=== PATIENT | female | born 1960 | race Caucasian/White ===

== ENCOUNTER 2020-02-21 12:43 | Emergency (ER) | payer BC ==
[~2020-02-21] VITALS: Ht 165.1 cm; Wt 55.5 kg
[2020-02-21 12:48] VITALS: Ht 165.1 cm; Wt 55.5 kg
[2020-02-21 13:28] LABS: BASOPHILS 0.8 % (0-2); HEMOGLOBIN 10.6 g/dL (12-16); IMMATURE GRANULOCYTES 0.3 % (0-5); LYMPHOCYTES 19.6 % (15-50); MCHC 33.1 g/dL (31.0-37.0); MCV 105.6 fL (80.0-100.0); MEAN PLATELET VOLUME 8.9 fL (7.4-10.4); MONOCYTES 5.1 % (2-11); NEUTROPHILS 73.2 % (40-80); PLATELET COUNT 386 10x3/uL (130-400); RBC 3.03 10x6/uL (4.00-5.40); RDW 16.5 % (11.5-14.5); WBC 14.4 10x3/uL (4.8-10.8)
[2020-02-21 13:46] LABS: ALBUMIN 3.8 g/dL (3.4-5.0); ANION GAP 14.3 mmol/L (8-16); BILIRUBIN - TOTAL 4.18 mg/dL (0.2-1.3); CALCIUM 9.7 mg/dL (8.5-10.1); CARBON DIOXIDE 25.5 mmol/L (21.0-32.0); CREATININE - SERUM 0.9 mg/dL (0.6-1.3); PROTEIN - SERUM 9.9 g/dL (6.4-8.2)
[2020-02-21 13:51] LABS: POTASSIUM - SERUM 2.8 mmol/L (3.5-5.1)
[2020-02-21 15:24] LABS: INR 1.46 (0.85-1.17); PROTIME 17.6 SECONDS (11.6-15.0)
[2020-02-21 15:30] LABS: MAGNESIUM - SERUM 1.7 mg/dL (1.8-2.4)
[2020-02-21 16:24] LABS: BILIRUBIN NEGATIVE (NEGATIVE); KETONE SMALL mg/dL (NEGATIVE); NITRITE NEGATIVE (NEGATIVE); UROBILINOGEN NORMAL (NORMAL)
[2020-02-21 19:20] VITALS: BP 123/78
== END 2020-02-21 19:20 | disposition other institution (70) ==
LOC: D.ER 12:43
PROVIDERS: Emergency Medicine
DX: K92.2 Gastrointestinal hemorrhage, unspecified (principal); R11.2 Nausea with vomiting, unspecified; K74.60 Unspecified cirrhosis of liver; E80.6 Other disorders of bilirubin metabolism; E87.6 Hypokalemia; R19.5 Other fecal abnormalities; I50.9 Heart failure, unspecified